=== PATIENT | male | born 1955 | race Caucasian/White ===

== ENCOUNTER → 2017-02-13 | Outpatient (CLI) | payer BC ==
[~2017-02-13] MED LIST: ADVIL200 MG PO; ASPIRIN EC81 MG PO; HYDRODIURIL25 MG PO; LISINOPRIL10 MG PO; ZOCOR40 MG PO
== END ==
LOC: GNJRC 10:23
DX: Z01.818 Encounter for other preprocedural examination (principal); M17.11 Unilateral primary osteoarthritis, right knee; Z79.899 Other long term (current) drug therapy